=== PATIENT | male | born 1990 | race Caucasian/White ===

== ENCOUNTER 2018-03-07 19:16 | Emergency (ER) | payer OTHER ==
[~2018-03-07] VITALS: Ht 160 cm; Wt 75.8 kg
[2018-03-07 20:19] LABS: HEMATOCRIT 41.3 % (38.0-50.0); HEMOGLOBIN 14.4 G/DL (12.5-16.6); MCH 30.2 PG (29.0-34.0); MCHC 34.9 G/DL (30.0-36.0); MCV 86.6 FL (86-99); PLATELET COUNT 256 K/uL (156-360); RBC DIS.WIDTH-CV 12.7 % (11.8-14.6); RBC DIS.WIDTH-SD 40.5 % (39-53); RED BLOOD COUNT 4.77 M/uL (4.00-5.50); WHITE BLOOD COUNT 8.5 K/uL (4.1-10.2)
[2018-03-07 20:27] LABS: ALBUMIN 4.6 g/dL (3.2-4.8); CHLORIDE 108 mEq/L (99-109); POTASSIUM 4.4 mEq/L (3.7-5.4); SODIUM 143 mEq/L (136-147)
[2018-03-07 20:30] LABS: GLUCOSE 102 mg/dL (70-99); TOTAL PROTEIN 7.6 g/dL (6.4-8.3)
[2018-03-07 20:32] LABS: TOTAL BILIRUBIN 1.4 mg/dL (0.0-1.0)
[2018-03-07 20:33] LABS: ALKALINE PHOSPHATASE 67 IU/L (3-129)
[2018-03-07 20:34] LABS: UREA NITROGEN (BUN) 18 mg/dL (9-23)
[2018-03-07 20:35] LABS: AST (GOT) 22 IU/L (2-34); GFR ESTIMATE (CALCULATED) > 59 mL/min/ (58.99-99999)
[2018-03-07 20:36] LABS: ALT (GPT) 20 IU/L (3-49)
[2018-03-07 20:41] LABS: TROP-I INTERPRETATION NEGATIVE; TROPONIN-I < 0.01 ng/mL (0.0-0.30)
[2018-03-07] MEDS ORDERED: TYLENOL325 M2 PO (22:27)
[2018-03-07 23:00] VITALS: BP 110/75
== END 2018-03-07 23:03 | disposition home or self-care (01) ==
LOC: EME 19:16
PROVIDERS: Emergency Medicine
DX: R07.9 Chest pain, unspecified (principal)
CPT/HCPCS: 71046; 80053; 84484; 85027; 93005; 99281; 99285